=== PATIENT | female | born 1945 ===

== ENCOUNTER 2024-02-14 12:43 | Outpatient (CLI) | payer MEDICARE, OTHER, SELFPAY | END 2024-02-14 12:44 | disposition home or self-care (01) | LOC: ANHAUDIO 12:44 | PROVIDERS: Visit Provider Otolaryngology | DX: H90.3 Sensorineural hearing loss, bilateral (principal); H69.90 Unspecified Eustachian tube disorder, unspecified ear; H93.19 Tinnitus, unspecified ear | CPT/HCPCS: 92557; 92567 ==